=== PATIENT | male | born 1965 | race African-American/Black ===

== ENCOUNTER 2016-09-11 14:23 | Emergency (ER) | payer OTHER ==
[~2016-09-11] VITALS: Ht 167.6 cm; Wt 95.3 kg
[~2016-09-11 14:23] MED LIST: FLEXERIL10 MG PO; GOOD SENSE IBU200 MG PO; LISINOPRIL AND1 TA1 PO; MEDROL DOSEPAK1 PAC PO; MEDROL4 MG PO; MELOXICAM15 MG PO; PERCOCET 325 MG1 TA2 PO; PERCOCET 325 MG1 TAB PO; PREDNISONE 10MG10 M1 PO; VALIUM5 M1 PO
--- NOTE | 2016-09-11 14:43 | ED NECK/BACK PAIN COMPLAINT ---
History of Present Illness General Chief Complaint: Low Back Pain/Injury Stated Complaint: LOWER BACK PAIN, RADIATES TO RIGHT KNEE Source: patient, old records Exam Limitations: no limitations Vital Signs & Intake/Output Vital Signs & Intake/Output Vital Signs Date Time Temp Pulse Resp B/P B/P Pulse O2 O2 Flow FiO2 Mean Ox Delivery Rate 09/11 1604 98.2 88 16 144/88 99 Room Air 09/11 1427 97.6 89 20 150/84 98 Room Air Allergies Coded Allergies: NO KNOWN ALLERGIES (03/12/15) Reconcile Medications Diazepam (Valium) 2 MG TABLET 1 TAB PO BID PRN pain Hydrochlorothiazide 25 MG TABLET 1 TAB PO DAILY BP (Reported) Methylprednisolone. (Medrol) 4 MG TAB.DS.PK 1 DP PO AD radiculopathy 6 on day 1 then reduce by one tablet daily until gone Metoprolol Succinate 50 MG TAB.ER.24H 1 TAB PO DAILY HEART/BP (Reported) Oxycodone HCl/Acetaminophen (Oxycodone-Acetaminophen 10-325) 10 MG-325 MG TABLET 1 TAB PO Q4P PRN PAIN (Reported) Triage Note: PT TO ED C/O RIGHT LOWER BACK PAIN RADIATING TO RIGHT BUTTOCK AND DOWN RIGHT LEG. H/O CHRONIC BACK PAIN. PT STATES THE PAIN STARTED SUDDENLY OVERNIGHT, WAKING HIM UP FROM SLEEP. DENIES ANY INJURY. 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 DESCRIBES "BURNING". Triage Nurses Notes Reviewed? yes Onset: Abrupt Duration: day(s): (1), constant Timing: recent history Quality/Severity: moderate, severe, burning Location: lumbar spine, paraspinous muscles Radiation: buttocks Method of Injury: unknown Loss of Consciousness: no loss of consciousness Modifying Factors: movement Associated Symptoms: denies HPI: 50-year-old male with history of chronic back pain for which she is in pain management, status post lumbar fusion presents complaining of right-sided lower back pain radiating to his right buttock and down his right leg since last night. He denies any known injury or trauma. He took a half of his Percocet at that time and then another half at 10 AM without improvement. Pain is burning in nature no numbness or tingling abdominal pain no urinary bowel incontinence. No chest pain up her back or neck pain no fever no chills (HANYAMIL LEWIS) Past History Travel History Traveled to [place] past 21 day No Medical History Any Pertinent Medical History? see below for history Cardiovascular: hypertension Musculoskeletal: BACK PROBLEMS Surgical History Surgical History: spinal fusion (LUMBAR) Psychosocial History What is your primary language Maltese Tobacco Use: Current Daily Use Daily Tobacco Use Amount/Type: => 5 Cigarettes daily ETOH Use: denies use Illicit Drug Use: denies illicit drug use Family History Hx Contributory? No (YAMIL LENTZ) Review of Systems Review of Systems Constitutional: Reports: see HPI. All Other Systems: Reviewed and Negative Comments Review of systems: See HPI, All other systems negative. Constitutional, no chills no fever, no malaise HEENT: no sore throat no congestion Cardiovascular: No chest pain , no palpitation Skin: no rashes, no change in skin Respiratory: No dyspnea no cough no sputum GI: No nausea no vomiting : No dysuria No hematuria, no frequency, no discharge Muscle skeletal: No joint pain, no joint swelling, back pain, no neck pain, Neurologic: No numbness no headache Psych: No stress Heme/endocrine: No bruising Immunology: No lymphadenopathy (YAMIL LENTZ) Physical Exam Physical Exam General Appearance: well developed/nourished, alert, awake Neck: normal inspection, supple Comments: Well-developed well-nourished person in no acute distress HEENT: Normal EENT exam; PERRL, EOMI,HEAD is atraumatic. moist mucous membranes. Neck: Supple, normal range of motion Back: Right sided paralumbar muscle tenderness to palpation of midline tenderness no ecchymosis or signs of trauma no CVA tenderness. Full range of motion Cardiovascular: Regular rate and rhythms no murmurs rubs Respiratory: Chest nontender.There were no bony deformities, no asymmetry. No respiratory distress. Patient speaking in full complete sentences. Breath sounds clear to auscultation bilaterally: NO W/R/R Abdomen: Soft, nontender nondistended, no appreciable organomegaly. Normal bowel sounds. No rebound/guarding, No appreciable enlargement of the abdominal aorta, No ascites. Extremity: No edema, full range of motion of extremities, positive straight leg raise to the right lower extremity negative crossover straight leg raise Neuro: Alert oriented x3, motor sensory normal, There were no obvious focal neurologic abnormalities. Skin: No appreciable rash on exposed skin, skin is warm and dry. Psych: Mood and affect is normal, memory and judgment is normal. (YAMIL LENTZ) Progress Differential Diagnosis: cauda equina syn, herniated disc, myofascial strain, pyelo/UTI, sciatica, spinal cord inj, T/L spine injury, ureterolithiasis Plan of Care: Orders Procedure Date/time Status XRY-LUMBOSACRAL SPINE AP & LAT 09/12 1447 Active Current Medications Sig/Sowmya Start time Last Medication Dose Stop Time Status Admin Dexamethasone 4 MG ONCE ONE 09/11 1500 AC (Decadron) 09/11 1529 Dextrose/Water 50 ML (D5W) Diazepam 2.5 MG ONCE ONE 09/11 1500 AC (Valium) 09/11 1501 Morphine Sulfate 6 MG ONCE ONE 09/11 1500 AC (Morphine) 09/11 1501 Patient medicated morphine Valium Decadron IV x-rays ordered case discussed with Dr. Hensley 1600 pt reports to feeling imrpoved. I discussed with the patient at length all of their results. I had an extensive conversation regarding need for close follow up with their primary care physician this week as well as return precautions. I answered all of their questions, they feel comfortable with the plan and follow-up care. I discussed with the patient/family the medications that they will receive. I gave them signs and symptoms that could indicate an adverse reaction. I have advised them to limit their activities until they can see how they respond to the medication. (YAMIL LENTZ) Diagnostic Imaging: Viewed by Me: Radiology Read. Discussed w/RAD: Radiology Read. Radiology Impression: PATIENT: SU CHERRY PRESENT AGE: 50 PATIENT ACCOUNT NO: [id number] : 64 LOCATION: [facility] ORDERING PHYSICIAN: YAMIL RAMOS SERVICE DATE: 09/11/16 EXAM TYPE: RAD - XRY- LUMBOSACRAL SPINE AP & LAT EXAMINATION: LUMBOSACRAL SPINE 3 VIEWS CLINICAL INFORMATION: Low back pain. COMPARISON: 03/12/2015. TECHNIQUE: AP, lateral, spot lateral views of the lumbosacral spine are provided. FINDINGS: Posterior spinal fusion hardware is intact extending from L4 to S1. There is no evidence for failure or migration. The remaining lumbar vertebra are in normal alignment. There is mild disc height loss at L2/L3. There is mild anterior osteophyte formation. There is increased sclerosis within the facet joints of the lumbar spine. No acute injury is identified. IMPRESSION: Intact posterior spinal fusion hardware. No evidence for acute injury. Degenerative change within the lumbar spine. DICTATED BY: CORI MONTIEL MD DATE/TIME DICTATED:09/11/161541 [employer] ARTIST TECHNICAL:ALEXANDRA DATE/TIME TRANSCRIBED:09/11/161541 CONFIDENTIAL, DO NOT COPY WITHOUT APPROPRIATE AUTHORIZATION. <Electronically signed in Other Vendor System> SIGNED BY: CORI MONTIEL MD 09/11/161546 (YAMIL LENTZ) Departure Departure Time of Disposition: 1555 Disposition: HOME OR SELF CARE Condition: Stable Clinical Impression Primary Impression: Lumbar strain Referrals: RAJEEV SCHAEFFER,LANETTE Cerna (PCP/Family) Additional Instructions: follow-up with your pain management and primary care physician. Valium Medrol Dosepak as directed continue taking her pain medication as prescribed return to ER with any concerns. Departure Forms: Customer Survey General Discharge Information Prescriptions: Current Visit Scripts Diazepam (Valium) 1 TAB PO BID PRN pain #6 TAB Methylprednisolone. (Medrol) 1 DP PO AD #1 DP 6 on day 1 then reduce by one tablet daily until gone (YAMIL LENTZ) PA/MANAGER PRACTICE Co-Sign Statement Statement: ED Attending supervision documentation- [] I saw and evaluated the patient. I have also reviewed all the pertinent lab results and diagnostic results. I agree with the findings and the plan of care as documented in the PA's/MANAGER PRACTICE's documentation. [X] I have reviewed the ED Record and agree with the PA's/MANAGER PRACTICE's documentation. [] Additions or exceptions (if any) to the PAs/MANAGER PRACTICE's note and plan are summarized below: [] (CINTHIA SCHAEFFER,FRANKI)
--- NOTE | 2016-09-11 15:47 | RADIOLOGY REPORT ---
EXAMINATION: LUMBOSACRAL SPINE 3 VIEWS CLINICAL INFORMATION: Low back pain. COMPARISON: 03/12/2015. TECHNIQUE: AP, lateral, spot lateral views of the lumbosacral spine are provided. FINDINGS: Posterior spinal fusion hardware is intact extending from L4 to S1. There is no evidence for failure or migration. The remaining lumbar vertebra are in normal alignment. There is mild disc height loss at L2/L3. There is mild anterior osteophyte formation. There is increased sclerosis within the facet joints of the lumbar spine. No acute injury is identified. IMPRESSION: Intact posterior spinal fusion hardware. No evidence for acute injury. Degenerative change within the lumbar spine.
[2016-09-11] MEDS ORDERED: OXYCODONE-ACET1 EAC1 PO (15:56)
[2016-09-11] MEDS ORDERED: METOPROLOL SUCC50 M2 PO (15:56)
[2016-09-11] MEDS ORDERED: HYDROCHLOROTHIA25 M1 PO (15:56)
[2016-09-11] MEDS ORDERED: MEDROL4 M2 PO (15:58)
[2016-09-11] MEDS ORDERED: VALIUM2 M1 PO (15:58)
[2016-09-11 16:04] VITALS: BP 144/88
== END 2016-09-11 16:09 ==
LOC: ERH 14:23
DX: S39.012A Strain of muscle, fascia and tendon of lower back, initial encounter (principal); X58.XXXA Exposure to other specified factors, initial encounter; Y92.9 Unspecified place or not applicable; Y93.9 Activity, unspecified
CPT/HCPCS: 72100; 96365; 96375; J1100; J3360